=== PATIENT | male | born 1995 | race Asian ===

== ENCOUNTER 2016-11-29 11:31 | Emergency (ER) | payer OTHER ==
--- NOTE | 2016-11-29 13:44 | ED ---
Throat Pain/Nasal Congestion - HPI Summary HPI Summary: 21 male presents with complaints of red, discharge and itchiness of right eye that began yesterday and worsened this morning. Patient states it was crusted shut with a thick, sticky discharge. Patient denies any symptoms to left eye at this time. Has been using over the counter red eye drops that have helped him, but has not gone away. Denies visual changes, photosensitivity and swelling. No other complaints or symptoms. Had similar symptoms 1 week ago that improved however it has returned and is worse. Patient wears contacts and glasses but has not worn them since symptoms began yesterday. Denies FB and scratching his eye. - History of Current Complaint Chief Complaint: EDEyeProblem Time Seen by Provider: 11/29/16 13:21 Hx Obtained From: Patient Onset/Duration: Sudden Onset, Lasting Days Severity: Mild Associated Signs And Symptoms: Negative: FB Sensation - Allergies/Home Medications Allergies/Adverse Reactions: Allergies Allergy/AdvReac Type Severity Reaction Status Date / Time Aspirin Allergy Eyes Verified 11/29/16 11:44 Itchy/Swollen/Red/Watery PMH/Surg Hx/FS Hx/Imm Hx Endocrine/Hematology History: Denies: Hx Diabetes Cardiovascular History: Denies: Hx Hypertension Respiratory History: Denies: Hx Asthma - Surgical History Surgery Procedure, Year, and Place: none - Immunization History Immunizations Up to Date: Yes Infectious Disease History: No Infectious Disease History: Denies: Traveled Outside the [place] in Last 30 Days - Family History Known Family History: Positive: None - Social History Alcohol Use: Occasionally Substance Use Type: Reports: None Smoking Status (MU): Never Smoked Tobacco Review of Systems Constitutional: Negative Positive: Drainage, Erythema, Other - discharge ENT: Negative Cardiovascular: Negative Respiratory: Negative Skin: Negative Neurological: Negative All Other Systems Reviewed And Are Negative: Yes Physical Exam Triage Information Reviewed: Yes Vital Signs On Initial Exam: Initial Vitals Temp Pulse Resp BP 98.2 F 82 16 139/65 11/29/16 11:45 11/29/16 11:45 11/29/16 11:45 11/29/16 11:45 Vital Signs Reviewed: Yes Appearance: Positive: Well-Appearing, No Pain Distress, Well-Nourished Skin: Positive: Warm, Skin Color Reflects Adequate Perfusion, Dry Head/Face: Positive: Normal Head/Face Inspection Eyes: Positive: EOMI, GEORGE, Conjunctiva Inflammed, Discharge, Other: - erythematous ENT: Positive: Normal ENT inspection, Hearing grossly normal, Nasal congestion, TMs normal Neck: Positive: Supple, Nontender, No Lymphadenopathy Respiratory/Lung Sounds: Positive: Clear to Auscultation, Breath Sounds Present Cardiovascular: Positive: Normal, RRR, Pulses are Symmetrical in both Upper and Lower Extremities Musculoskeletal: Positive: Strength/ROM Intact Neurological: Positive: Normal, Sensory/Motor Intact, Alert, Oriented to Person Place, Time Diagnostics - Vital Signs Vital Signs Temp Pulse Resp BP Pulse Ox 11/29/16 11:47 98.2 F 76 16 139/65 97 11/29/16 11:45 98.2 F 82 16 139/65 - Laboratory Lab Statement: Any lab studies that have been ordered have been reviewed, and results considered in the medical decision making process. EENT Course/Dx - Course Course Of Treatment: patient treated for acute bacterial conjunctivitis. aware of worsening signs and symptoms. educated on not wearing contacts and throwing recent ones away. follow up. - Differential Diagnoses Differential Diagnoses: Conjunctivitis, Foreign Body, URI/Bronchitis, Other - Diagnoses Provider Diagnoses: Bacterial conjunctivitis of right eye Discharge - Discharge Plan Condition: Stable Disposition: HOME Prescriptions: Moxifloxacin 0.5% OPHTH(NF) [Vigamox 0.5% OPHTH(NF)] 1 drop RIGHT EYE Q3HR #1 [email or web address] Patient Education Materials: Conjunctivitis (ED) Referrals: [facility] CHRISTIN Ash [Primary Care Provider] - Additional Instructions: Use prescribed eye drop as directed for the next 7 days. Keep fingers out of eye to avoid spreading. Wash clothes, towel and pillow cases in hot water to avoid re-infection. Ibuprofen for discomfort and inflammation. Do NOT wear contacts for the next 7-10 days. Recommend throwing away most recent contact lenses. Drink plenty of fluids. Follow up with PCP. If symptoms worsen or do not improve please return.
== END 2016-11-29 13:50 | disposition home or self-care (01) ==
LOC: ED 11:31
DX: H10.9 Unspecified conjunctivitis (principal)
CPT/HCPCS: 99281